=== PATIENT | male | born 1950 | race Two or more races ===

== ENCOUNTER 2018-06-25 15:05 | Outpatient (CLI) | payer OTHER ==
[~2018-06-25 15:05] MED LIST: GEMFIBROZIL600 MG; GLIPIZIDE ER10 MG; GLUCOPHAGE XR500 MG; METFORMIN HCL850 MG; PRINIVIL5 MG; PYRIDIUM DS200 MG PO; TAMS0.4C
== END 2018-06-25 15:11 | disposition home or self-care (01) ==
LOC: LAB 15:05
DX: R33.8 Other retention of urine (principal); N40.1 Benign prostatic hyperplasia with lower urinary tract symptoms; R97.20 Elevated prostate specific antigen [PSA]

== ENCOUNTER 2019-10-24 08:52 | Outpatient (CLI) | payer OTHER | END 2019-10-24 08:56 | disposition home or self-care (01) | LOC: LAB 08:52 | DX: R33.8 Other retention of urine (principal); R97.20 Elevated prostate specific antigen [PSA]; R31.29 Other microscopic hematuria ==

== ENCOUNTER → 2020-05-05 10:04 | Outpatient (CLI) | payer OTHER | END | disposition home or self-care (01) | LOC: LAB 10:04 | PROVIDERS: ATTEND Urology | DX: R33.8 Other retention of urine (principal); R97.20 Elevated prostate specific antigen [PSA]; N40.1 Benign prostatic hyperplasia with lower urinary tract symptoms ==

== ENCOUNTER 2020-11-09 10:17 | Outpatient (CLI) | payer OTHER | END 2020-11-09 10:23 | disposition home or self-care (01) | LOC: LAB 10:17 | PROVIDERS: ATTEND Urology | DX: R33.8 Other retention of urine (principal); R97.20 Elevated prostate specific antigen [PSA]; N30.00 Acute cystitis without hematuria ==

== ENCOUNTER 2020-12-01 08:53 | Outpatient (CLI) | payer OTHER | END 2020-12-01 11:53 | disposition home or self-care (01) | LOC: SONOGRAMA 08:53 | DX: R10.9 Unspecified abdominal pain (principal); N18.31 Chronic kidney disease, stage 3a; R31.9 Hematuria, unspecified ==

== ENCOUNTER 2021-02-15 10:01 | Outpatient (CLI) | payer OTHER | END 2021-02-15 10:11 | disposition home or self-care (01) | LOC: LAB 10:01 | PROVIDERS: ATTEND Specialist/Technologist, Other Nephrology | DX: D63.1 Anemia in chronic kidney disease (principal); E11.21 Type 2 diabetes mellitus with diabetic nephropathy; N30.00 Acute cystitis without hematuria; E03.9 Hypothyroidism, unspecified ==

== ENCOUNTER 2021-11-18 09:54 | Outpatient (CLI) | payer OTHER | END 2021-11-18 09:55 | disposition home or self-care (01) | LOC: LAB 09:54 | PROVIDERS: ATTEND Urology | DX: R97.20 Elevated prostate specific antigen [PSA] (principal); R31.1 Benign essential microscopic hematuria ==

== ENCOUNTER 2021-12-16 09:46 | Outpatient (CLI) | payer OTHER | END 2021-12-16 09:55 | disposition home or self-care (01) | LOC: LAB 09:46 | PROVIDERS: ATTEND Urology | DX: R97.20 Elevated prostate specific antigen [PSA] (principal); N30.00 Acute cystitis without hematuria ==

== ENCOUNTER 2022-04-04 10:34 | Outpatient (CLI) | payer OTHER | END 2022-04-04 10:39 | disposition home or self-care (01) | LOC: LAB 10:34 | PROVIDERS: ATTEND Urology | DX: R33.9 Retention of urine, unspecified (principal); R97.20 Elevated prostate specific antigen [PSA]; R31.1 Benign essential microscopic hematuria ==

== ENCOUNTER → 2022-09-26 11:02 | Outpatient (CLI) | payer OTHER | END | disposition home or self-care (01) | LOC: LAB 11:02 | PROVIDERS: ATTEND Urology | DX: R33.9 Retention of urine, unspecified (principal); R97.20 Elevated prostate specific antigen [PSA]; R31.1 Benign essential microscopic hematuria ==

== ENCOUNTER 2022-09-30 10:05 | Outpatient (CLI) | payer OTHER | END 2022-09-30 10:15 | disposition home or self-care (01) | LOC: SONOGRAMA 10:05 | PROVIDERS: ATTEND Urology | DX: R33.9 Retention of urine, unspecified (principal); N20.0 Calculus of kidney ==